=== PATIENT | male | born 1955 | race Caucasian/White ===

== ENCOUNTER 2019-08-30 06:41 | Day surgery (SDC) | payer BC ==
[2019-08-30] VITALS (14 sets, daily range): BP systolic 112–167; BP diastolic 53–101
[~2019-08-30] VITALS: Ht 180.3 cm; Wt 76.7 kg
[2019-08-30] MEDS ORDERED: normal saline 1000ml 1,000 ML IV PRN (07:00)
[2019-08-30] MEDS ORDERED: BRIM5DRO16 EACHEYE (07:18)
[2019-08-30] MEDS ORDERED: THIA50TA10 PO (07:18)
[2019-08-30] MEDS ORDERED: FLUT1BLS4 INH (07:18)
[2019-08-30] MEDS ORDERED: FURO-150 PO (07:18)
[2019-08-30] MEDS ORDERED: SPIR50TA PO (07:18)
[2019-08-30] MEDS ORDERED: XAL0.005OS OP (07:18)
[2019-08-30] MEDS ORDERED: DORZ10DR2 EACHEYE (07:18)
[2019-08-30] MEDS ORDERED: ALB0.5UD IH (07:18)
[2019-08-30] MEDS ORDERED: DORZ10DR18 EACHEYE (07:18)
[2019-08-30] MEDS ORDERED: POTA10TA19 PO (07:18)
[2019-08-30] MEDS: albumin 25% 100mL bottle x 1 IV PRN ×3 (09:26→10:27)
== END 2019-08-30 11:15 | disposition home or self-care (01) ==
LOC: MED 3N 06:41 → U 06:41
PROVIDERS: ATTEND Radiology Vascular & Interventional Radiology
DX: K70.31 Alcoholic cirrhosis of liver with ascites (principal); J44.9 Chronic obstructive pulmonary disease, unspecified; Z86.19 Personal history of other infectious and parasitic diseases; F10.10 Alcohol abuse, uncomplicated; Z79.899 Other long term (current) drug therapy; F17.290 Nicotine dependence, other tobacco product, uncomplicated
CPT/HCPCS: 49083; C1729; P9047